=== PATIENT | female | born 1940 | race Caucasian/White ===

== ENCOUNTER 2020-11-15 17:00 | Emergency (ER) | payer MEDICARE, MEDICAID ==
[~2020-11-15] VITALS: Ht 154.9 cm; Wt 73.0 kg
[2020-11-15 22:37] LABS: BG BASE EXCESS 2.6 mmol/L (-2.0-2.0); BG CARBOXYHEMOGLOBIN 0.1 % (0.5-1.5); BG DEOXYHEMOGLOBIN 33.4 % (0.0-5.0); BG FRACTION INSPIRED OXYGEN 36; BG HCO3 ACT 27.9 mmol/L (22.0-26.0); BG OXYGEN SATURATION 66.6 % (92.0-98.5); BG OXYHEMOGLOBIN 66.5 % (94.0-97.0); BG PCO2 46.1 mmHg (35.0-45.0); BG PH 7.399 (7.350-7.450); BG PO2 35.6 mmHg (75.0-100.0); BG TOTAL HEMOGLOBIN 9.6 g/dL (12.0-18.0); BG VENT MODE NASAL CANNULA
[2020-11-15 23:34] LABS: HEMATOCRIT. 28.4 % (36.0-48.0); HEMOGLOBIN. 9.3 g/dL (12.0-16.0); MEAN CORPUSCULAR HEMOGLOBIN 28.5 pg (28.0-32.0); PLATELET 184 x1000/uL (130-400); RED BLOOD CELL COUNT 3.26 mill/uL (4.2-5.4); RED CELL DISTRIBUTION WIDTH 22.5 % (11.6-14.6)
[2020-11-15 23:38] LABS: CHLORIDE 101 mEq/L (98-107)
[2020-11-15] MEDS ORDERED: DEXAMETHASONE 4MG/ML 1ML VIAL IV ONE (23:45)
[2020-11-15] MEDS ORDERED: AZITHROMYCIN 500 MG in DEXT 5% WATER 250 ML IV ONE (23:45)
[2020-11-15] MEDS ORDERED: ASPIRIN 325MG EC TABLET PO ONE (23:45)
[2020-11-15] MEDS ORDERED: CEFTRIAXONE 1 G PREMIX 50 ML IV ONE (23:45)
[2020-11-15] MEDS ORDERED: FUROSEMIDE 40MG/4ML VIAL IVP ONE (23:45)
[2020-11-16 00:40] LABS: PLATELET ESTIMATE NORMAL
[2020-11-16] MEDS ORDERED: ONDANSETRON HCL 4MG/2ML INJ IV PRN (10:30)
[2020-11-16] MEDS ORDERED: ACETAMINOPHEN 650MG SUPP PR PRN (10:30)
[2020-11-16] MEDS ORDERED: DOCUSATE SODIUM 100MG CAPSULE PO PRN (10:30)
[2020-11-16 11:00] VITALS: BP 116/43
[2020-11-16] MEDS ORDERED: DEXAMETHASONE 10 MG/ML VIAL IV SCH (11:23)
[2020-11-16] MEDS ORDERED: PANTOPRAZOLE SODIUM 40 MG/VIAL IV SCH (11:23)
[2020-11-16] MEDS ORDERED: AZITHROMYCIN 500 MG TABLET PO SCH (12:00)
[2020-11-16] MEDS ORDERED: CEFTRIAXONE 1 G PREMIX 50 ML IV SCH (21:00)
== END 2020-11-16 12:02 | disposition left against medical advice (07) ==
LOC: ER 17:00 → EDBEDREQTM 23:44 → EDBEDREQ 23:44 → ER 11-16 12:02 → CANBEDREQ 11-16 15:49
DX: U07.1 COVID-19 (principal); J96.01 Acute respiratory failure with hypoxia; I50.43 Acute on chronic combined systolic (congestive) and diastolic (congestive) heart failure; N17.9 Acute kidney failure, unspecified; I11.0 Hypertensive heart disease with heart failure; E44.0 Moderate protein-calorie malnutrition; Z68.30 Body mass index [BMI] 30.0-30.9, adult; R74.01 Elevation of levels of liver transaminase levels; D64.9 Anemia, unspecified; Z95.0 Presence of cardiac pacemaker
CPT/HCPCS: 36415; 36600; 71045; 80053; 82375; 82805; 83880; 84484; 85025; 87426; 93005; 99291; J0456; J0696; J1100; J1940; J7060